=== PATIENT | male | born 1995 | race Caucasian/White ===

== ENCOUNTER 2017-05-19 22:21 | Emergency (ER) | payer OTHER ==
[~2017-05-19] VITALS: Ht 175.3 cm; Wt 63.5 kg
[~2017-05-19 22:21] MED LIST: AMOX50SU PO; AZIT200SU PO; CODACEE120 PO; CYPR4 PO; IBUP100S; SUMA25 PO; [UNRECOGNIZED DRUG - REMARK]
== END 2017-05-19 23:45 | disposition home or self-care (01) ==
LOC: ER 22:21
DX: S01.81XA Laceration without foreign body of other part of head, initial encounter (principal); S01.412A Laceration without foreign body of left cheek and temporomandibular area, initial encounter; S01.311A Laceration without foreign body of right ear, initial encounter; W20.8XXA Other cause of strike by thrown, projected or falling object, initial encounter
CPT/HCPCS: 12014; 99284

== ENCOUNTER 2017-05-24 13:11 | Emergency (ER) | payer OTHER ==
[~2017-05-24] VITALS: Ht 175.3 cm; Wt 64.9 kg
== END 2017-05-24 14:27 | disposition home or self-care (01) ==
LOC: ER 13:11
DX: S01.412D Laceration without foreign body of left cheek and temporomandibular area, subsequent encounter (principal); X58.XXXD Exposure to other specified factors, subsequent encounter
CPT/HCPCS: 99281

== ENCOUNTER 2018-09-09 08:24 | Inpatient (IN) | payer OTHER ==
[~2018-09-09] VITALS: Ht 175.3 cm; Wt 95.5 kg
[2018-09-09 09:59] LABS: BASOPHILS ABSOLUTE AUTO 0.03 K/mm3 (0.00-0.23); BASOPHILS PERCENT AUTO 0 % (0-2); EOSINOPHILS ABSOLUTE AUTO 0.16 K/mm3 (0.00-0.68); EOSINOPHILS PERCENT AUTO 1 % (0-6); Hematocrit 48.9 % (37.0-53.0); Hemoglobin 15.7 g/dL (13.5-17.5); IMMATURE GRAN PERCENT AUTO 1 % (0-1); LYMPHOCYTES ABSOLUTE AUTO 0.64 K/mm3 (0.84-5.20); LYMPHOCYTES PERCENT AUTO 3 % (21-46); MONOCYTES ABSOLUTE AUTO 1.81 K/mm3 (0.16-1.47); MONOCYTES PERCENT AUTO 8 % (4-13); Mean Corpuscular HGB 28.5 pg (26.0-34.0); Mean Corpuscular HGB Conc 32.1 g/dL (31.5-36.5); Mean Corpuscular Volume 89 fL (80-100); Mean Platelet Volume 11.3 fL (9.1-12.4); NEUTROPHILS ABSOLUTE AUTO 19.28 K/mm3 (1.96-9.15); NEUTROPHILS PERCENT AUTO 88 % (41-73); Platelet Count 252 K/mm3 (150-400); RDW Coefficient Variation 13.6 % (11.7-14.2); RDW Standard Deviation 44.6 fL (35.1-46.3); White Blood Cell Count 22.02 K/mm3 (4.00-11.30)
[2018-09-09 10:14] LABS: Alanine Aminotransfer (ALT/SGP 19 U/L (12-78); Albumin, Blood 3.8 g/dL (3.4-5.0); Albumin/Globulin Ratio 1.2 (0.8-1.8); Alk Phos 53 U/L (50-136); Anion Gap 8 mmol/L (6-16); Aspartate Aminotrans (AST/SGOT 10 U/L (12-37); Bilirubin, Total 0.7 mg/dL (0.1-1.0); Blood Urea Nitrogen 9 mg/dL (8-24); Bun/Creatinine Ratio 12.3 (12.0-20.0); CO2, Blood 21 mmol/L (21-32); Calcium, Blood 8.5 mg/dL (8.5-10.1); Chloride, Blood 109 mmol/L (98-108); Creatinine, Blood 0.73 mg/dL (0.60-1.20); Globulin, Blood 3.2 g/dL (2.2-4.0); Glomerular Filtration Rate >60 (60-); Glucose, Blood 111 mg/dL (70-99); Potassium, Blood 3.9 mmol/L (3.5-5.5); Sodium, Blood 138 mmol/L (136-145)
[2018-09-09 13:30] LABS: U Amphetamine Screen Not Detected; U Barbituate Screen Not Detected; U Benzodiazapine Screen Not Detected; U Buprenorphine Screen Not Detected; U Cannabinoids Screen Not Detected; U Cocaine Screen Not Detected; U Methadone Screen Not Detected; U Methamphetamine Screen Not Detected; U Opiates Screen Not Detected; U Oxycodone Screen Not Detected; U Phencyclidine Screen Not Detected; U Propoxyphene Screen Not Detected
[2018-09-09 13:52] LABS: Influenza A Negative (NEGATIVE); Influenza B Negative (NEGATIVE)
--- NOTE | 2018-09-09 18:01 | NUR ---
SHIFT SUMMARY PT IS A NEW ADMISSION THIS AFTERNOON FROM ED FOR PNEUMONIA. MEDICATED FOR PAIN IN CHEST WITH BREATHING PER EMAR. PT HAS LOW GRADE TEMP 100.4. TYLENOL ADMINISTERED EARLIER FOR PAIN. WILL MONITOR FOR EFFECTIVENESS FOR PAIN AND FEVER. IVF INFUSING WITHOUT DIFFICUTLY. PT ON 3 LITERS VIA NC WITH OXYGEN SATURATION 92-94%. NON PRODUCTIVE COUGH. NO ACUTE DISTRESS AT THIS TIME. CALL LIGHT IN REACH. WILL CONTINUE TO MONITOR AND REPORT TO ONCOMING RN.
--- NOTE | 2018-09-09 21:00 | NUR ---
PT C/O PLEURITIC CHEST PAIN W/DYSPNEA. PT OBSERVED DIAPHORETIC, SOB AT REST W/SHALLOW TACHYPNEIC RESPS AND GUARDED WEAK COUGH. RR 27, HR 109, SPO2 94% ON 3L O2 AND TEMP 100.5. HE ALSO BECAME NAUSEOUS AND PUKED A SCANT AMT BILE D/T COUGHING. LS COARSE AND RT CONSULTED. FLUTTER PROVIDED AND SPLINTING EXPLAINED. RN INSTRUCTED PT TO USE URINAL FOR ACCURATED OUTPUT MONITORING. ALERTED W/NEW ORDERS RECIEVED: DECREASE NS TO 75ML/HR, X1 DOSE DILAUDID 2MG IV, TRAMADOL 50MG PO Q6H PRN, ZOFRAN 4-8MG IV Q6H PRN. THESE MEDS WERE RECIEVED AND TESSALON PRN PROVIDED WELL. PT WAS ALREADY LESS PAINFUL AND SLEEPING WHEN RN LEFT ROOM. WILL MONITOR FOR CONT'D EFFECT.
--- NOTE | 2018-09-10 02:20 | NUR ---
PT C/O PLEURITIC CP UNRELIEVED BY TRAMADOL AND TYLENOL PRN W/DIFFICULTY SLEEPING. SOB W/ACTIVITY PERSISTS AND SEEMS TO EXACERBATE PAIN. MADE AWARE AND WE DISCUSSED PREVIOUS MEDS RX'D TONIGHT AND RECIEVED. TORADOL PRN AND MELATONIN AT HS PRN ORDERED, 1ST DOSES RECIEVED AND AWAITING EFFECTS.
--- NOTE | 2018-09-10 05:13 | NUR ---
SUMMARY: A/OX4, SPECIFIES NEEDS AND INDEPENDENT IN ROOM. PT HAS BEEN SOB FOLLOWING ACTIVITY AND REMAINS SO AT TIMES EVEN AT REST. SPO2 WNL ON 3L O2 DESPITE TACHYPNEA W/RR 20'S MOST OF SHIFT. HE C/O PLEURITIC STABBING PAIN WHICH SEEMS TO EXACERBATE RESP DISTRESS. WHEN PAIN IS AT IT'S WORST PT APPEARS DIAPHORETIC AND TACHYCARDIC W/LABORED RESPS. HE HAD AN EPISODE OF NAUSEA W/SCANT EMESIS RESULT. AND HAVE BEEN ALERTED T/O NOCTE W/NEW ORDERS RECIEVED. X1 IV DILAUDID WAS RX'D AND PROVIDED, PT SLEPT WELL BUT EFFECT WAS BRIEF. HE'S ALSO BEEN RX'D AND RECIEVED PRN ZOFRAN, TRAMADOL, TESSALON PERLS, TYLENOL, TORADOL AND MELATONIN FOR SLEEP. PLEURITIC PAIN SEEMS BETTER THIS AM BUT HE CONT'S TO C/O JULIEN. PT TAKEN FOR CXR THIS AM. RT CX'D AND PROVIDED FLUTTER SINCE LS WERE COARSE W/SCATTERED CRACKLES AT START OF SHIFT. BX AND SPLINTING TECHNIQUES TAUGHT. IVF WERE DECREASED TO 75 ML/HR FOR FLUID OVERLOAD PRECAUTION. PT REMAINS NSR AT 90'S-100'S PER TELEMETRY. NO ACUTE CHANGES, VSS/AFEBRILE. WILL MONITOR AND REPORT TO DAY RN.
[2018-09-10 06:28] LABS: BASOPHILS ABSOLUTE AUTO 0.04 K/mm3 (0.00-0.23); BASOPHILS PERCENT AUTO 0 % (0-2); EOSINOPHILS ABSOLUTE AUTO 0.25 K/mm3 (0.00-0.68); EOSINOPHILS PERCENT AUTO 1 % (0-6); Hematocrit 51.7 % (37.0-53.0); Hemoglobin 16.4 g/dL (13.5-17.5); IMMATURE GRAN ABSOLUTE AUTO 0.31 K/mm3 (0.00-0.10); IMMATURE GRAN PERCENT AUTO 1 % (0-1); LYMPHOCYTES ABSOLUTE AUTO 0.94 K/mm3 (0.84-5.20); LYMPHOCYTES PERCENT AUTO 4 % (21-46); MONOCYTES ABSOLUTE AUTO 1.58 K/mm3 (0.16-1.47); MONOCYTES PERCENT AUTO 6 % (4-13); Mean Corpuscular HGB 28.6 pg (26.0-34.0); Mean Corpuscular HGB Conc 31.7 g/dL (31.5-36.5); Mean Corpuscular Volume 90 fL (80-100); Mean Platelet Volume 11.6 fL (9.1-12.4); NEUTROPHILS ABSOLUTE AUTO 24.12 K/mm3 (1.96-9.15); NEUTROPHILS PERCENT AUTO 89 % (41-73); Platelet Count 257 K/mm3 (150-400); RDW Coefficient Variation 13.9 % (11.7-14.2); RDW Standard Deviation 46.4 fL (35.1-46.3); Red Blood Cell Count 5.74 M/mm3 (4.30-5.90); White Blood Cell Count 27.24 K/mm3 (4.00-11.30)
[2018-09-10 06:44] LABS: Anion Gap 6 mmol/L (6-16); Blood Urea Nitrogen 6 mg/dL (8-24); Bun/Creatinine Ratio 7.8 (12.0-20.0); CO2, Blood 24 mmol/L (21-32); Calcium, Blood 8.3 mg/dL (8.5-10.1); Chloride, Blood 106 mmol/L (98-108); Creatinine, Blood 0.77 mg/dL (0.60-1.20); Glomerular Filtration Rate >60 (60-); Glucose, Blood 130 mg/dL (70-99); Potassium, Blood 4.2 mmol/L (3.5-5.5); Sodium, Blood 136 mmol/L (136-145)
--- NOTE | 2018-09-10 15:28 | NUR ---
Echocardiogram completed.
--- NOTE | 2018-09-10 17:32 | NUR ---
SHIFT SUMMARY PT HAS HAD COMPLAINTS OF CHEST/PLEURITIC PAIN THROUGH OUT THE SHIFT. MEDICATED FOR PAIN PER EMAR. PT SHALLOW BREATHNG AND HAS OCCASIONAL COUGH. OXYGEN INCREASED TO 6L FROM 3L THIS AFTERNOON DUE TO PT'S OXYGEN SATURATION IN 80'S. PT'S OXYGEN SATURATION HAS BEEN 92-94% ON 6L. DR. SHELDON IN TO SEE PT. NEW ANTIBIOTIC ORDERED. SPUTUM SAMPLE SENT PER ORDERS. NO FURTHER CHANGES THIS SHIFT. CALL LIGHT IN REACH. WILL CONTINUE TO MONITOR AND REPORT TO ONCOMING RN.
--- NOTE | 2018-09-11 04:35 | NUR ---
*LATE ENTRY* FREQUENT PAIN/SOB W/BREATHING PT HAS FREQUENTLY REPORTED 9/10 SHARP PAIN EITHER W/HEADACHE, BACK, OR W/BREATHING. WHEN PT REPORTS THIS DISCOMFORT HIS BREATHING IS VERY TACHYPNEIC & HE IS SOB. NOTIFIED HOSPITALIST MENG & HE CAME TO FLOOR TO ASSESS PT AROUND 0330. DR FAN ORDERED A 1X DOSE OF TORADOL & CHANGED DOSAGE OF ULTRAM, ALSO REPORTED HE WOULD TALK TO DR. CORDERO IN AM. EVEN AFTER ADMINISTERING TORADOL PT IS STILL SITTING ON SIDE OF BED RESTING OVER BEDSIDE TABLE STATING HE FEELS SOB. EARLIER THIS EVENING RT INCREASED SUPPLEMENTAL O2 TO 11L DUE TO SPO2 IN 80'S ON 5L, I HAVE SINCE DECREASED O2 DOWN TO 9L & SPO2 IS IN LOW 90'S. I WILL CONTINUE TO MONITOR PT.
[2018-09-11 05:05] LABS: PCO2 Arterial 38.8 mmHg (35-45); PO2 Arterial 63.6 mmHg (80-100); pH Blood Arterial 7.38 (7.35-7.45)
[2018-09-11 06:56] LABS: BASOPHILS ABSOLUTE AUTO 0.03 K/mm3 (0.00-0.23); BASOPHILS PERCENT AUTO 0 % (0-2); EOSINOPHILS ABSOLUTE AUTO 0.39 K/mm3 (0.00-0.68); EOSINOPHILS PERCENT AUTO 2 % (0-6); Hemoglobin 14.5 g/dL (13.5-17.5); IMMATURE GRAN ABSOLUTE AUTO 0.12 K/mm3 (0.00-0.10); IMMATURE GRAN PERCENT AUTO 1 % (0-1); LYMPHOCYTES ABSOLUTE AUTO 0.65 K/mm3 (0.84-5.20); LYMPHOCYTES PERCENT AUTO 4 % (21-46); MONOCYTES ABSOLUTE AUTO 1.39 K/mm3 (0.16-1.47); MONOCYTES PERCENT AUTO 7 % (4-13); Mean Corpuscular HGB 28.5 pg (26.0-34.0); Mean Corpuscular HGB Conc 30.9 g/dL (31.5-36.5); Mean Platelet Volume 11.6 fL (9.1-12.4); NEUTROPHILS ABSOLUTE AUTO 16.22 K/mm3 (1.96-9.15); NEUTROPHILS PERCENT AUTO 86 % (41-73); Platelet Count 213 K/mm3 (150-400); RDW Coefficient Variation 13.8 % (11.7-14.2); RDW Standard Deviation 47.2 fL (35.1-46.3); Red Blood Cell Count 5.08 M/mm3 (4.30-5.90)
[2018-09-11 07:07] LABS: Mean Corpuscular Volume 93 fL (80-100)
[2018-09-11 07:08] LABS: Anion Gap 8 mmol/L (6-16); Blood Urea Nitrogen 6 mg/dL (8-24); Bun/Creatinine Ratio 9.3 (12.0-20.0); CO2, Blood 22 mmol/L (21-32); Calcium, Blood 7.9 mg/dL (8.5-10.1); Chloride, Blood 108 mmol/L (98-108); Creatinine, Blood 0.65 mg/dL (0.60-1.20); Glomerular Filtration Rate >60 (60-); Glucose, Blood 105 mg/dL (70-99); Potassium, Blood 4.1 mmol/L (3.5-5.5); Sodium, Blood 138 mmol/L (136-145)
--- NOTE | 2018-09-11 07:31 | NUR ---
SHIFT SUMMARY PT HAS BEEN AWAKE MOST OF NIGHT DUE TO PAIN & SOB. AOX4. DENIES NAUSEA. REPORTS 7-01/28 SHARP PAIN IN BACK, HEADACHE & W/BREATHING. WHEN PAIN INCREASES PT IS TACHYPNEIC W/RR 28-32. AT BEGINNING OF SHIFT PT ON 5L HIGH FLOW NC, RT ASSESSED PT & SPO2 IN 80'S THEREFORE O2 INCREASED TO 11L W/SPO2 IN 90'S. TITRATED O2 DOWN TO 9L W/SPO2 IN LOW 90'S, HOWEVER PT STILL SITTING ON SIDE OF BED, TACHYPNEIC & REPORTING DIFFICULTY BREATHING. CALLED RT & THEY PLACED PT ON AIRVO 35L/MIN @ 45% O2 AFTER TALKING W/DR FAN. LUNGS ARE COURSE W/CRACKLES T/O LOBES. PT HAS BEEN COUGHING UP YELLOW/GREEN THICK MUCUS CHUNKS & TENDS TO THROW UP WHEN HE COUGHS UP MUCUS BUT DENIES NAUSEA. PT STATES "WHEN I LAY ON MY LEFT SIDE IT IS HARDER TO BREATH," & FEELS MORE COMFORTABLE W/SITTING. AROUND 0625 DR FAN CAME TO FLOOR & STATED HE WOULD LIKE PT TRANSFERED TO PCU. CALLED REPORT AROUND 0745 & GAVE REPORT TO RN FOR ICU 1, SINCE NO BEDS AVAILABLE IN PCU. HAS BEEN @ BEDSIDE T/O NIGHT.
--- NOTE | 2018-09-11 09:34 | NUR ---
ARRIVAL TO ICU AND CARE ASSUME PT BROUGHT TO ICU FROM MEDICAL FLOOR AT 0730. PT ARRIVES WITH OZYMIZER 5L AND SPO2 94% AND IS TACHYPNIC. C/O SEVERE PAIN TO CHEST AND IS TALKING IN CHOPPY SENTENCES. OZYMIZER REMOVED AND AIRVO APPLIED AT 50L, 65%. LUNG SOUNDS COARSE WITH CRACKLES IN BASES. BEDSIDE. DILAUDID 1 MG IVP GIVEN FOR CHEST PAIN. SINUSTACH, HR 100-120S. BP STABLE. TEMP 99.0. MIV NS IFUSING AT 75ML/HR PER ORDER. PT A/O X 3, AND IS ANXIOUS. ENCOURAGED PT TO SLOW BREATHING AND REDUCE EXERTION. MD SHELDON CALLED AND NOTIFIED THAT PT HAS BEEN TRANSFERRED TO ICU AND O2 DEMANDS HAVE INCREASED ON AIRVO. 2ND IV STARTED AND PT MOVED ONTO MORE COMFORTABLE BED. ABLE TO STAND AND TRANSFER WITH NO ASSIST. CALL LIGHT WITHIN REACH. WILL CONTINUE TO MONITOR.
--- NOTE | 2018-09-11 12:34 | NUR ---
REASSESSMENT PT MUCH MORE RELAXED THAN WHEN FIRST ARRIVED. STATES PAIN HAS IMPROVED SINCE REIEVING TRAMADOL. LUNG SOUNDS REMAIN COARSE AND CRACKLY. AIRVO 50L, 65%. VSS. AFEBRILE AT THIS TIME. BP STABLE. NSR, HR 80-110. INDEPENDENT WITH USING URINAL AND MOVING AROUND IN BED. DOES GET SHORT OF BREATH WITH ANY EXERTION. NS MIV INFUSING AT 75ML/HR PER ORDER. WILL CONTINUE TO MONITOR.
[2018-09-11 15:50] LABS: Vancomycin, Trough 10.2 ug/mL (5.0-10.0)
--- NOTE | 2018-09-11 16:30 | NUR ---
REASSESSMENT PT RECEIVED BEDBATH AND LINEN CHANGE. HE IS ABLE TO STAND AND AMBULATE AROUND ROOM WITH NO ASSIST BUT BECOMES SHORT OF BREATH WITH ANY EXERTION. CONTINUES TO WEAR AIRVO 50L, 65% OXYGEN. LUNG SOUNDS REMAIN COARSE WITH CRACKLES. PT SLEEPING AT THIS TIME. TEMP 99.0. REMAINS A/O X 3. VSS. WILL CONTINUE TO MONITOR.
--- NOTE | 2018-09-11 17:00 | NUR ---
This student was given permission to access patient's information.
--- NOTE | 2018-09-11 18:13 | NUR ---
SHIFT SUMMARY PT ARRIVED FROM MEDICAL FLOOR EARLY THIS AM. HE HAS REMAINED ON AIRVO 50L, 65% MOST OF SHIFT. SLEPT FEW HOURS THIS AFTERNOON. FAMILY IN/OUT ROOM ENTIRE SHIFT. RECEIVED MANY ANTIBIOTICS DURING SHIFT. NS MIV INFUSING AT 75 ML/HR PER ORDER. RECIEVED BEDBATH AND LINEN CHANGE, HAD BM AND HAS BEEN UP AND OUT OF BED MULTIPLE TIMES DURING SHIFT. TMAX 99.0. WILL GIVE BEDSIDE, HANDOFF REPORT TO NOC RN.
--- NOTE | 2018-09-11 19:30 | NUR ---
ASSESSMENT PT SITTING UP IN BED WITH SO AT BEDSIDE. PT STATES,"I'M BREATHING A LITTLE BETTER THAN WHEN I CAME IN. STARTING TO HAVE CHEST AND BACK PAIN AGAIN 07/28". MED WITH ULTRAM 100 MG. PT MOVING AND TURNING SELF IN BED. STANDS AT BEDSIDE TO VOID. VOIDING CLEAR YELLOW URINE. LUNGS COARSE AND DECREASED THROUGHOUT. AIRVO AT 65% 50 LITERS O2. INSTRUCTED AND ENCOURAGED TO USE FLUTTER VALVE. HEART RATE REGULAR. BP STABLE. IV 20G TO LEFT HAND WITH NS AT 75 ML/HR, SITE CLEAR. IV 20G TO LEFT FOREARM WITH ZOSYN AT, SITE CLEAR. BT+ ABD SOFT AND NONTENDER. RT AT BEDSIDE GIVING UDN TX
--- NOTE | 2018-09-11 20:14 | NUR ---
RESP STATUS PT STOOD AT BEDSIDE TO VOID. INCREASED RESP RATE AND DECREASED SPO2 NOTED. PT DROPPED DOWN TO 85% ON THE AIRVO. RT CALLED AND INCREASED AIRVO TO 60 LITERS O2 AT 75%. PT BACK TO BED INSTRUCTED TO BREATH IN THROUGH NOSE AND OUT THROUGH MOUTH WITH TRYING TO DECREASED RESP RATE. SPO2 BACK UP TO 93%. PT MED WITH MELATONIN FOR SLEEP PER REQUESTE. PT REPORTS PAIN DOWN TO 1/10.
--- NOTE | 2018-09-11 21:14 | NUR ---
CALL OUT TO DR SHELDON REGARDING INCREASED O2 NEED. AIRVO INCREASED TO 60 LITERS AT 90%. NEW ORDERS RECEIVED FOR BIPAP 03/03 AND PRECEDEX GTT IF NEEDED TO TOLERATE BIPAP
--- NOTE | 2018-09-11 21:50 | NUR ---
BIPAP PT BEING PLACED ON BIPAP 03/03. NEW IV STARTED TO LEFT AC 20G FOR POSSIBLE USE OF PRECEDEX TO TOLERATE BIPAP.
--- NOTE | 2018-09-12 00:32 | NUR ---
PT RESTING WITH EYES CLOSED, SPO2 DOWN TO 88% INCREASED FIO2 TO 90%. RESP RATE 43 WITH TV AT 500. WILL CONT TO MONITOR.
--- NOTE | 2018-09-12 01:30 | NUR ---
INTUBATION PT CONT TO HAVE INCREASED WORK OF BREATHING WITH RESP RATE 50-60. SPO2 DOWN TO 88-90% ON BIPAP AT FIO2 OF 90%. DR RIVERA FROM ER INTUBATED PT AT 0100. ET TUBE 8.0 AT 26 TEETH. PT SEDATED WITH ETOMIDATE 10 MG, ROCURONIUM 100MG AND VERSED 4 MG. OG TUBE PLACED AND LI CATH 16 FR PLACED WITH YELLOW URINE OUTPUT. DR SHELDON NOTIFIED AND VENT SETTINGS CHANGED TO AC 18 TV 450 PEEP 10 FIO2 100%. CXR DONE AND DR RIVERA CONFIRMED TUBE PLACEMENT, BUT WAS PUTTING A CALL TO DR SHELDON DUE TO THE PT MAY NEED [facility]
[2018-09-12 01:42] LABS: PCO2 Arterial 45.4 mmHg (35-45); PO2 Arterial 56.6 mmHg (80-100); pH Blood Arterial 7.34 (7.35-7.45)
--- NOTE | 2018-09-12 02:00 | NUR ---
LR BOLUS FOR HYPOTENSION STARTED. MOTHER AND SO AT BEDSIDE
--- NOTE | 2018-09-12 02:45 | NUR ---
PAIN PT PULLING ON RESTRAINT AND HITTING PILLOW. PROPOFOL AT 25 MCQ/KG/MIN. MED WITH FENTANYL 50 MCQ
[2018-09-12 03:27] LABS: Hematocrit 38.7 % (37.0-53.0); Hemoglobin 12.5 g/dL (13.5-17.5); Mean Corpuscular HGB 28.5 pg (26.0-34.0); Mean Corpuscular HGB Conc 32.3 g/dL (31.5-36.5); Mean Platelet Volume 11.2 fL (9.1-12.4); Platelet Count 254 K/mm3 (150-400); RDW Coefficient Variation 13.6 % (11.7-14.2); RDW Standard Deviation 44.2 fL (35.1-46.3); Red Blood Cell Count 4.39 M/mm3 (4.30-5.90); White Blood Cell Count 17.39 K/mm3 (4.00-11.30)
[2018-09-12 03:30] LABS: Mean Corpuscular Volume 88 fL (80-100)
[2018-09-12 03:42] LABS: Source, Urine Catheter
[2018-09-12 03:46] LABS: Bilirubin, Urine Neg (Neg); Blood, Urine Neg (Neg); Glucose Qualitative, Urine Neg (Neg); Ketones, Urine Neg (Neg); Leukocyte Esterase, Urine Neg (Neg); Nitrite, Urine Neg (Neg); Protein, Urine 2+ (Neg); Specific Gravity, Urine 1.025 (1.003-1.022); Urobilinogen, Urine NORM (Normal)
[2018-09-12 03:50] LABS: Alanine Aminotransfer (ALT/SGP 15 U/L (12-78); Albumin, Blood 2.5 g/dL (3.4-5.0); Albumin/Globulin Ratio 0.8 (0.8-1.8); Alk Phos 34 U/L (50-136); Anion Gap 6 mmol/L (6-16); Aspartate Aminotrans (AST/SGOT 10 U/L (12-37); Bilirubin, Total 0.2 mg/dL (0.1-1.0); Blood Urea Nitrogen 9 mg/dL (8-24); Bun/Creatinine Ratio 14.5 (12.0-20.0); CO2, Blood 25 mmol/L (21-32); Calcium, Blood 7.9 mg/dL (8.5-10.1); Chloride, Blood 108 mmol/L (98-108); Creatinine, Blood 0.62 mg/dL (0.60-1.20); Globulin, Blood 3.2 g/dL (2.2-4.0); Glomerular Filtration Rate >60 (60-); Glucose, Blood 160 mg/dL (70-99); Magnesium, Blood 2.3 mg/dL (1.6-2.4); Phosphorus, Blood 2.7 mg/dL (2.5-4.9); Potassium, Blood 4.1 mmol/L (3.5-5.5); Sodium, Blood 139 mmol/L (136-145); Total Protein, Blood 5.7 g/dL (6.4-8.2)
[2018-09-12 04:05] LABS: Appearance, Urine Clear (Clear); Bacteria Rare /hpf; Color, Urine Yellow (P-Yellow); Red Blood Cells, Urine Not Seen /hpf (0-2); Squamous Epithelial Cells Few /hpf (Few); White Blood Cells, Urine Rare /hpf (0-5)
[2018-09-12 04:17] LABS: BAND PERCENT MAN 3 % (0-8); BASOPHILS PERCENT MAN 0 % (0-2); EOSINOPHILS PERCENT MAN 0 % (0-6); LYMPHOCYTES ABSOLUTE MAN 1.04 K/mm3 (0.84-5.20); LYMPHOCYTES PERCENT MAN 6 % (21-46); MONOCYTES ABSOLUTE MAN 0.52 K/mm3 (0.16-1.47); MONOCYTES PERCENT MAN 3 % (4-13); NEUTROPHILS ABSOLUTE MAN 15.82 K/mm3 (1.96-9.15); SEG NEUTROPHILS PERCENT MAN 88 % (41-73); TOTAL CELLS COUNTED 100
--- NOTE | 2018-09-12 04:19 | NUR ---
REASSESSMENT PT INTUBATED AND ON MECH VENT. LUNGS COARSE AND DECREASED IN THE BASES. REPOSITIONED PT AND SPO2 DOWN TO 79% ON THE LEFT. REPOSITIONED TO BACK WITH HOB UP AND SPO2 INCREASED TO 85-86%. RT NOTIFIED AND THEY INCREASED PEEP TO 15. SPO2 UP TO 90-92%. PT MED WITH FENTANYL 50 MCQ DUE TO REACHING FOR TUBE. UA SENT. ORAL CARE DONE. MOTHER AND SO AT BEDSIDE
--- NOTE | 2018-09-12 05:51 | NUR ---
SHIFT SUMMARY PT INTUBATED DURING THE NIGHT DUE TO INCREASED RESP RATE AND DECREASED SPO2. PT STARTED ON AIRVO WHICH WAS TITRATED TO MAX 90% AND 70 LITERS O2. PT THAN PLACED ON BIPAP AND TITRATE UP TRYING TO KEEP SPO2 ABOVE 90%. PT CONT TO BREATH AT A RATE ON 50-60 AND SPO2 DOWN TO 88%. PT WAS INTUBATED BY DR RIVERA 8.0 ET TUBE 26 AT LIP. CURRENT VENT SETTINGS AC 18 TV 450 PEEP 15 FIO2 80%. LUNGS COARSE AND DECREASED IN THE BASES. HEART RATE REGULAR. BP STABLE. PT RECEIVED ONE LITER BOLUS OF LR AND THAN WAS CHANGED TO LR AT 100 ML/HR. PT SEDATED ON PROPOFOL AT 25 MCQ/KG/MIN AND GIVEN FENTANYL 50MCQ PRN FOR SEDATION. LI CATH AND OG PLACED AFTER INTUBATION. MOTHER AND SO AT BEDSIDE. PT POSSIBLE TRANSFER UP [facility] TODAY FOR [facility]. BILAT SOFT WRIST RESTRAINTS ON. REPORT TO ON COMING NURSE
--- NOTE | 2018-09-12 11:23 | NUR ---
09/12/18 1123 Adriana Osborn PT INTIBATED AND SEDATED ON VENT. ADDITIONAL SEDATION GIVEN WITH FENTANYLM AFTER DISCUSSING PLAN WITH DR. PADGETT. MONITOR INTACT WITH CONTINUOUS PULSE OXIMETRY AND INTERMITTENT BP.3-LEAD EKG REVIEWED WITH PHYSICIAN PRIOR TO START OF PROCEDURE.
--- NOTE | 2018-09-12 12:51 | NUR ---
REASSESSMENT: PT WAS HAVING A LOT OF DISCOMFORT THIS MORNING RELATED TO THE ET TUBE. FENTANYL HELPED A LITTLE, BUT THE DILAUDID FINALLY MADE HIM COMFORTABLE. PROPPOFOL HAD TO BE TITRATED UP WELL TO GET PT TO SETTLE DOWN. PT'S LUNGS WERE COARSE THIS MORNING, BUT ARE MORE CLEAR NOW. HE HAD A BRONCH AT THE BEDSIDE AND TOLERATED IT WELL. OXYGEN RATES HAVE BEEN ABLE TO BE TITRATED DOWN BUT PEEP IS STILL AT 15. SR TO ST DEPENDING ON PT'S AGITATION LEVEL. ABD IS A LITTLE FIRM AND DISTENDED. AT FIRST THIS MORNING IT APPEARED PT WAS SAYING HIS BELLY OR BLADDER HURT, BUT AFTER HE WAS ABLE TO WRITE HE WROTE THAT IT WAS HIS THROAT. TUBE FEED TO START THIS AFTERNOON. PT'S SO AND MOM HAVE BEEN IN AND OUT OF THE ROOM. BOTH HAVE BEEN FULLY UPDATED BY MD AND NURSING STAFF.
[2018-09-12 15:17] LABS: Other Cells, BAL 8 % (0-1)
[2018-09-12 15:28] LABS: Vancomycin, Trough 14.2 ug/mL (5.0-10.0)
[2018-09-12 16:02] LABS: Other Cells, BAL 15 % (0-1)
--- NOTE | 2018-09-12 17:15 | NUR ---
SHIFT SUMMARY: PT HAS IMPROVED THROUGHOUT THE SHIFT WITH PEEP DOWN TO 10 AND FIO2 DOWN TO 45% WITH SPO2 GREATER THAN 90%. LUNG SOUNDS HAVE IMPROVED AND ARE NOW CLEAR. STILL GETTING A SMALL AMT OF TUTTLE SPUTUM FROM THE ETT. HR IMPROVED WITH RATE IN THE 80S, BP REMAINS STABLE. PT STILL HAS OCCASIONAL ANXIETY AND COMPLAINTS OF PAIN, CONTROLLED WITH FENTANYL AND DILAUDID. PT HAD A BRONCH TODAY AND HAS DONE WELL SINCE. TUBE FEED STARTED THIS AFTERNOON AND HE IS TOLERATING SO FAR. LI DRAINING CL YELLOW URINE. PT'S FAMILY HAS BEEN IN AND OUT THROUGHOUT THE DAY AND HAVE BEEN UPDATED.
--- NOTE | 2018-09-12 19:15 | NUR ---
ASSUMING CARE OF PT AT THIS TIME. PT REPORT RECEIVED AT BEDSIDE WITH OFFGOING NURSE, BRITTNI VELAZCO. PT LAYING IN BED, INTUBATED, AND SEDATED UPON ENTERING THE ROOM. VS STABLE - SEE VS FS. PT DOES NOT APPEAR TO BE IN DISTRESS AT THIS TIME. WILL REVIEW PLAN OF CARE.
--- NOTE | 2018-09-12 19:30 | NUR ---
ASSESSMENT PT CALM & SLEEPING IN BED WITH DECREASED STIMULI. INCREASED AGITATION, ANXIETY, RESTLESSNESS, AND PULLING AT BILAT WRIST RESTRIANTS WITH DECREASED SEDATION AND INCREASED STIMULI. PT RESPONDS TO VERBAL STIMULI, OPENS EYES TO VERBAL STIMULI, FOLLOWS COMMANDS (ABLE TO WIGGLE TOES AND RETAIL SALES MERCHANDISER ON COMMAND), NODDING HEAD Y/N TO MOST QUESTIONS). PROPOFOL DRIP AT 50 MCG/KG/MIN - WILL TITRATE TO EFFECT. HUANG SENSATION. PT NOT NODDING HEAD Y/N TO N/T OR SENSATION INTACT IN EXTREMETIES. PT SON. WEAK MOVEMENT NOTED. NO S/SX OF PAIN/DISCOMFORT NOTED. PT DENIES PAIN/DISCOMFORT. LUNGS COARSE, LOWER LOBES DIMINISHED. VENT SETTINGS: AC 18, TV 450, PEEP 10, FIO2 45%. OXY SAT >90%. RR 20'S. PER REPORT FROM MORA ELKINS: DO NOT DECREASE PEEP <10. SUCTION VIA ETT: SMALL AMOUNTS OF THICK TUTTLE SECRETIONS. AFEBRILE. NSR. HR 90'S. BP STABLE - SEE VS FS. STRONG RADIAL AND PEDAL PULSES. FAINT TIBIAL PULSES. WARM, PINK SKIN. HYPOACTIVE BT X4 QUADRANTS. ABD SOFT, NONTENDER, MOD DIST. OG TUBE IN PLACE. TF: VHP AT GOAL RATE 15 ML/HR AND 30 ML FLUSH Q4 HR. RESIDUAL 0. F/C: CLEAR, YELLOW URINE. PIV X3. NS TKO AT 10 ML/HR X2. LR TKO AT 10 ML/HR. PT'S FAMILY AT BEDSIDE.
[2018-09-13 03:27] LABS: BASOPHILS ABSOLUTE AUTO 0.03 K/mm3 (0.00-0.23); BASOPHILS PERCENT AUTO 0 % (0-2); EOSINOPHILS ABSOLUTE AUTO 0.34 K/mm3 (0.00-0.68); EOSINOPHILS PERCENT AUTO 2 % (0-6); Hematocrit 34.7 % (37.0-53.0); Hemoglobin 11.4 g/dL (13.5-17.5); IMMATURE GRAN PERCENT AUTO 1 % (0-1); LYMPHOCYTES ABSOLUTE AUTO 0.94 K/mm3 (0.84-5.20); LYMPHOCYTES PERCENT AUTO 6 % (21-46); MONOCYTES ABSOLUTE AUTO 0.99 K/mm3 (0.16-1.47); MONOCYTES PERCENT AUTO 6 % (4-13); Mean Corpuscular HGB 28.8 pg (26.0-34.0); Mean Corpuscular HGB Conc 32.9 g/dL (31.5-36.5); Mean Corpuscular Volume 88 fL (80-100); Mean Platelet Volume 11.1 fL (9.1-12.4); NEUTROPHILS ABSOLUTE AUTO 14.31 K/mm3 (1.96-9.15); NEUTROPHILS PERCENT AUTO 86 % (41-73); Platelet Count 289 K/mm3 (150-400); RDW Coefficient Variation 14.1 % (11.7-14.2); RDW Standard Deviation 45.5 fL (35.1-46.3); Red Blood Cell Count 3.96 M/mm3 (4.30-5.90); White Blood Cell Count 16.71 K/mm3 (4.00-11.30)
[2018-09-13 03:43] LABS: Anion Gap 9 mmol/L (6-16); Blood Urea Nitrogen 16 mg/dL (8-24); Bun/Creatinine Ratio 20.4 (12.0-20.0); CO2, Blood 23 mmol/L (21-32); Calcium, Blood 8.1 mg/dL (8.5-10.1); Chloride, Blood 107 mmol/L (98-108); Creatinine, Blood 0.79 mg/dL (0.60-1.20); Glomerular Filtration Rate >60 (60-); Glucose, Blood 170 mg/dL (70-99); Magnesium, Blood 2.6 mg/dL (1.6-2.4); Phosphorus, Blood 2.9 mg/dL (2.5-4.9); Potassium, Blood 3.6 mmol/L (3.5-5.5); Sodium, Blood 139 mmol/L (136-145)
[2018-09-13 04:33] LABS: PCO2 Arterial 36.2 mmHg (35-45); PO2 Arterial 70.7 mmHg (80-100); pH Blood Arterial 7.41 (7.35-7.45)
--- NOTE | 2018-09-13 04:48 | NUR ---
SHIFT ASSESSMENT NO ACUTE CHANGES NOTED T/O SHIFT. PT CALM & SLEEPING IN BED WITH DECREASED STIMULI. INCREASED AGITATION, ANXIETY, RESTLESSNESS, AND PULLING AT BILAT WRIST RESTRAINTS WITH DECREASED SEDATION AND INCREASED STIMULI. PT RESPONDS TO VERBAL STIMULI, OPENS EYES TO VERBAL STIMULI, OPENED EYES SPONT DURING SEDATION VACATION, FOLLOWS COMMANDS (ABLE TO WIGGLE TOES AND MARINE MECHANIC ON COMMAND), NODDING HEAD Y/N TO MOST QUESTIONS. PROPOFOL CURRENTLY AT 60 MCG/KG/MIN - CONT TO TITRATE TO EFFECT. SEDATION VACATION COMPLETED. PT NODDED HEAD YES TO SENSATION INTACT ALL EXTREMETIES. PT NODDED HEAD NO TO N/T ALL EXTREMEITES. PT SON. WEAK MOVEMEN NOTED. OCC S/SX OF PAIN/DISCOMFORT NOTED T/O SHIFT. PT OCC NODDED HEAD YES TO PAIN/DISCOMFORT T/O SHIFT. CONT TO ASSESS FOR PAIN/DISCOMFORT AND MEDICATED WITH PAIN MEDS PER PHYSICIAN'S ORDER / UTILIZED NONPHARM METHODS T/O SHIFT. LUNGS COARSE, LOWER LOBES DIMINISHED. VENT SETGINS: AC 18, TV 450, PEEP 10, FIO2 45%. OXY SAT >90%. RR 18 TO 20'S. SUCTION VIA ETT: SMALL AMOUNTS OF THICK TUTTLE SECRETIONS. PER ALBA, RT: SBT NOT COMPLETED D/T PEEP 10. AFEBRILE. NSR TO ST. HR 80'S TO 100'S. BP STABLE - SEE VS FS. STRONG RADIAL AND PEDAL PULSES. FAINT TIBIAL PULSES. WARM, PINK SKIN. HYPOACTIVE BT X4 QUADRANTS. ABD SOFT, NONTENDER, MOD DIST. OG TUBE IN PLACE. TF: VHP AT GOAL RATE 15 ML/HR AND 30 ML FLUSH Q4 HR. RESIDUAL 0. F/C: GREEN/YELLOW URINE. PIV X3. NS TKO X2 ON STANDBY. LR TKO ON STANDBY. PT'S FAMILY REMAINED AT BEDSIDE. WILL CONT TO MONITOR PT AND WILL PROVIDE BEDSIDE REPORT TO ONCOMING NURSE THIS AM.
[2018-09-13 07:11] LABS: HIV SCREEN 4TH GENERATION WRFX Non Reactive (Non Reactive)
[2018-09-13 08:10] LABS: COMPLEMENT C3, SERUM 134 mg/dL (82-167); COMPLEMENT C4, SERUM 22 mg/dL (14-44)
--- NOTE | 2018-09-13 08:45 | NUR ---
INITIAL ASSESSMENT PATIENT IS INTUBATED AND ON SEDATION WITH SIGNIFICANT OTHER AT THE BEDSIDE. PATIENT RESPONDS TO VERBAL STIMULI AND FOLLOWS COMMANDS. PATIENT IS ABLE TO NOD HEAD TO QUESTIONS. PATIENT HAD PERIODS OF AGITATION THIS AM AND NODDED HEAD WHEN ASKED IF HE WAS HAVING PAIN. PATIENT WAS MEDICATED WITH PRN DILAUDID AND PATIENT BECAME MORE CALM. PATIENT IS AFEBRILE. PATIENT IS SATTING 90% OR GREATER ON CURRENT VENT SETTINGS: AC 18, TV 450, PEEP 10, FIO2 45%. PATIENT LUNG SOUNDS WERE CLEAR AND DIMINISHED IN THE LOWER LOBES BUT WERE COARSE IN THE UPPER LOBES. PATIENT WAS SINUS TACH W HR IN THE LOW 100S. BP IS STABLE. PATIENT HAS OG IN PLACE WITH VHP INFUSING AT GOAL RATE OF 15 ML/HR. PATIENT HAD RESIDUAL OF 0. PATIENT HAS TEMP LI IN PLACE DRAINING CLEAR GREEN URINE TO GRAVITY. SKIN IS WNL. VANCO INFUSING WITH NS. ZOSYN INFUSING WITH NS. PROPOFOL INFUSING AT 60 MCG/KG/MIN. BED LOW. CALL LIGHT IN REACH. WILL CONTINUE TO MONITOR.
--- NOTE | 2018-09-13 10:07 | NUR ---
DR CABRALES CHANGES VENTILATOR SETTINGS TO SPONTANEOUS PRESSURE SUPPORT 5/5, FIO2 45%. PATIENT SATTING WELL AT 90% OR GREATER. WILL CONTINUE TO MONITOR.
--- NOTE | 2018-09-13 14:04 | NUR ---
PATIENT WAS EXTUBATED AT 1335. PATIENT CALM, COOPERATIVE, FOLLOWING DIRECTIONS. PATIENT SATTING 90% OR GREATER ON 6 L NC. IV IN R FOREARM INFILTRATED. TIGHT HAND AND FOREARM, HAND RED, FOREARM IS PALE IN COLOR. DR CABRALES INFORMED AND ASSESSED SITE. INSTRUCTED TO ELEVATED AND WARM COMPRESS WAS PLACED. WILL CONTINUE TO MONITOR.
--- NOTE | 2018-09-13 14:52 | NUR ---
PATIENT DRINKING WATER THAT FAMILY GAVE HIM, UPON NURSE WALKING INTO ROOM. PATIENT APPPEARS TO BE SWALLOWING WELL. PATIENT INFORMED THAT HE NEEDS TO USE SWAB WITH WATER UNTIL SWALLOW EVAL IN MORNING AND THEN HE WILL BE PLACED ON A PROPER DIET. PATIENT AGREEABLE.
--- NOTE | 2018-09-13 17:13 | NUR ---
PATIENT IS ALERT AND ORIENTED AND SITTING UP IN BED VISITING WITH FAMILY AT THE BEDSIDE. PATIENT HAS A TEMPERATURE OF 99.9 DEGREES FAHRENHEIT. PATIENT LUNG SOUNDS APPEAR CLEAR THROUGHOUT. PATIENT IS SATTING 90% OR GREATER ON 6 L NC. PATIENT IS SINUS TACH W HR IN THE 100S-110S. BP IS STABLE. OG TUBE AND TUBE FEEDING D/C'D DURING EXTUBATION. R UPPER EXTREMITY IS TIGHT AND SWOLLEN FROM INFILTRATED IV. WARM COMPRESS WAS APPLIED AND INSTRUCTED PATIENT TO ELEVATE ARM ON PILLOW. PATIENT HAS VANCO AND ZOSYN INFUSING. NO OTHER ACUTE CHANGES TO NOTE ON AT THIS TIME. WILL CONTINUE TO MONITOR. BED LOW. CALL LIGHT IN REACH.
--- NOTE | 2018-09-13 18:54 | NUR ---
SHIFT SUMMARY PATIENT IS ALERT AND ORIENTED. PATIENT IS SITTING UP IN BED VISITING WITH SIGNIFICANT OTHER. PATIENT HAS A TEMPERATURE OF 99.0 DEGREES FAHRENHEIT. PATIENT WAS EXTUBATED TODAY. PATIENT LUNGS SOUNDS ARE CLEAR THROUGHOUT. PATIENT WAS TITRATED FROM 6 L NC TO 8 L OXIMIZER AND IS SATTING 90% OR GREATER ON THIS. PATIENT IS SINUS TACH WITH HR IN THE LOW 100S. BP IS STABLE. PATIENT HAS MODERATE DISTENTION IN ABDOMEN BUT HAS NO COMPLAINTS OF TENDERNESS TO PALPATION. PATIENT HAS HYPOACTIVE BOWEL SOUNDS. JEN WAS D/C'D TODAY. PATIENT HAS TIGHT SKIN AND SOME SWELLING ON RIGHT ARM FROM INFILTRATED IV THAT WAS REMOVED. PATIENT HAS BEEN ELEVATING ARM WITH A WARM COMPRESS FOR THIS. NO OTHER ACUTE CHANGES IN SKIN TO NOTE AT THIS TIME. BED LOW. CALL LIGHT IN REACH. WILL CONTINUE TO MONITOR.
--- NOTE | 2018-09-13 19:15 | NUR ---
ASSUMED CARE OF PT PT ALERT, ORIENTED AND EXTREMELY ANXIOUS. PT ON 12L VIA OXYMIZER WITH O2 SATS IN THE LOW 90'S. VSS. PT REQUESTED TO STAND WITH ASSISTANCE TO USE URINAL. PT SHAKY AND SOB AND REPORTS BEING LIGHTHEADED. PT'S SO AT BEDSIDE. SEE FULL SHIFT ASSESSMENT.
[2018-09-14 03:55] LABS: BASOPHILS ABSOLUTE AUTO 0.03 K/mm3 (0.00-0.23); BASOPHILS PERCENT AUTO 0 % (0-2); EOSINOPHILS ABSOLUTE AUTO 0.43 K/mm3 (0.00-0.68); EOSINOPHILS PERCENT AUTO 3 % (0-6); Hematocrit 37.6 % (37.0-53.0); IMMATURE GRAN ABSOLUTE AUTO 0.36 K/mm3 (0.00-0.10); IMMATURE GRAN PERCENT AUTO 2 % (0-1); LYMPHOCYTES ABSOLUTE AUTO 1.21 K/mm3 (0.84-5.20); LYMPHOCYTES PERCENT AUTO 7 % (21-46); MONOCYTES ABSOLUTE AUTO 1.25 K/mm3 (0.16-1.47); MONOCYTES PERCENT AUTO 7 % (4-13); Mean Corpuscular HGB 28.2 pg (26.0-34.0); Mean Corpuscular HGB Conc 31.9 g/dL (31.5-36.5); Mean Corpuscular Volume 88 fL (80-100); NEUTROPHILS ABSOLUTE AUTO 14.23 K/mm3 (1.96-9.15); NEUTROPHILS PERCENT AUTO 81 % (41-73); Platelet Count 327 K/mm3 (150-400); RDW Coefficient Variation 14.6 % (11.7-14.2); RDW Standard Deviation 47.2 fL (35.1-46.3); Red Blood Cell Count 4.26 M/mm3 (4.30-5.90); White Blood Cell Count 17.51 K/mm3 (4.00-11.30)
[2018-09-14 04:15] LABS: Alanine Aminotransfer (ALT/SGP 44 U/L (12-78); Albumin, Blood 2.9 g/dL (3.4-5.0); Albumin/Globulin Ratio 0.9 (0.8-1.8); Alk Phos 35 U/L (50-136); Anion Gap 10 mmol/L (6-16); Aspartate Aminotrans (AST/SGOT 20 U/L (12-37); Bilirubin, Total 0.2 mg/dL (0.1-1.0); Blood Urea Nitrogen 19 mg/dL (8-24); Bun/Creatinine Ratio 26.9 (12.0-20.0); CO2, Blood 23 mmol/L (21-32); Calcium, Blood 8.1 mg/dL (8.5-10.1); Chloride, Blood 109 mmol/L (98-108); Creatinine, Blood 0.71 mg/dL (0.60-1.20); Globulin, Blood 3.2 g/dL (2.2-4.0); Glomerular Filtration Rate >60 (60-); Glucose, Blood 114 mg/dL (70-99); Magnesium, Blood 2.7 mg/dL (1.6-2.4); Sodium, Blood 142 mmol/L (136-145); Total Protein, Blood 6.1 g/dL (6.4-8.2)
--- NOTE | 2018-09-14 06:29 | NUR ---
SHIFT SUMMARY NO ACUTE CHANGES OVERNIGHT. PT DID NOT SLEEP HE FELT ANXIOUS AND WANTED TO GET OUT OF BED. ATTEMPTED TO AMBULATE PT BUT HE WAS DANGLING ON SIDE OF BED PATIENT REPORTED FEELING LIGHT HEADED, BECAME TACHYPNEIC AND HAD DROP IN 02 SATS TO MID 80'S. PT'S O2 INCREASED TO 12L VIA OXYMIZER. PT ENCOURAGED TO USE URINAL IN BED NEEDED. PT STATES THAT HE "WANTS TO GO HOME" AND "WANTS TO TAKE THE OXYMIZER OFF FOR A LITTLE WHILE". PT REMINDED THAT HE IS ON A SIGNIFICANT AMOUNT OF OXYGEN. PT'S SIGNIFICANT OTHER REMAINS AT BEDSIDE.
--- NOTE | 2018-09-14 08:31 | NUR ---
PT AWAKE,DROWSY THIS AM. TEARFUL, ANXIOUS, FEARFUL. STATES HE DOES NOT FEEL ANY BETTER. PT CLAMMY, PALE. TEMP 28.6. RESP 40'S. O2 INCREASED FROM 11L TO 15L OVER 30MIN. SATS 88-91%. DR CABRALES CALLED AT 0800. LASIX 40 IV GIVEN, BIPAP STARTED /6 WITH FIO2 AT 35%. CRACKLES TO BASES RIGHT WORSE THAN LEFT, FINE CRACKLES TO UPPER LOBES AUSCULT. TO BACK SIDE ONLY. AT BEDSIDE. DR CABRALES AT BEDSIDE TO ASSESS PT AT 0825.
--- NOTE | 2018-09-14 10:16 | NUR ---
PT'S TWO SON'S AND [id number] AT BEDSIDE. DR CABRALES AT BEDSIDE WELL; FAMILY UPDATED.
--- NOTE | 2018-09-14 10:16 | NUR ---
VERSED DC'D PER DR CABRALES. FENTANYL GTT MAY BE TITRATED UP NEEDED PER HER ORDERS.
[2018-09-14 11:06] LABS: ANTI-DSDNA ANTIBODIES <1 IU/mL (0-9); RNP ANTIBODIES <0.2 AI (0.0-0.9); SJOGREN'S ANTI-SS-A <0.2 AI (0.0-0.9); SJOGREN'S ANTI-SS-B <0.2 AI (0.0-0.9); SMITH ANTIBODIES <0.2 AI (0.0-0.9)
[2018-09-14 11:11] LABS: Base Excess Venous -0.1 mmol/L; Bicarbonate Venous 24.6 mmol/L (24.0-30.0); PCO2 Venous 35.8 mmHg (38-42); PO2 Venous 136 mmHg (38-42); pH Blood Venous 7.44 (7.34-7.37)
--- NOTE | 2018-09-14 13:08 | NUR ---
DR SANABRIA IN EARLIER TO SEE PT. DR CABRALES HAS ORDERED AFTERNOON LABS. BIPAP PLACED ON STANDBY FOR BREAK. O2 AT 10L VIA OXYMIZER PLACED. PT DOING MUCH BETTER THAN THIS AM. LUNGS IMPROVED. LESS CRACKLES APPRECIATED. VERY DIMINISHED TO RLL. CLEAR TO UPPER LOBES. FINE CRACKLES REMAIN IN LLL. PT COUGHING UP COPIOUS AMTS OF YELLOW TO CLEAR SPUTUM. ABLE TO TAKE SIPS OF WATER W/O DIFF;NO COUGHING AFTER.
[2018-09-14 16:00] LABS: BASOPHILS ABSOLUTE AUTO 0.09 K/mm3 (0.00-0.23); BASOPHILS PERCENT AUTO 0 % (0-2); EOSINOPHILS ABSOLUTE AUTO 1.37 K/mm3 (0.00-0.68); EOSINOPHILS PERCENT AUTO 6 % (0-6); Hematocrit 40.5 % (37.0-53.0); Hemoglobin 13.3 g/dL (13.5-17.5); IMMATURE GRAN ABSOLUTE AUTO 1.05 K/mm3 (0.00-0.10); IMMATURE GRAN PERCENT AUTO 5 % (0-1); LYMPHOCYTES ABSOLUTE AUTO 1.83 K/mm3 (0.84-5.20); LYMPHOCYTES PERCENT AUTO 9 % (21-46); MONOCYTES ABSOLUTE AUTO 1.67 K/mm3 (0.16-1.47); MONOCYTES PERCENT AUTO 8 % (4-13); Mean Corpuscular HGB 28.3 pg (26.0-34.0); Mean Corpuscular HGB Conc 32.8 g/dL (31.5-36.5); Mean Corpuscular Volume 86 fL (80-100); Mean Platelet Volume 10.8 fL (9.1-12.4); NEUTROPHILS ABSOLUTE AUTO 15.33 K/mm3 (1.96-9.15); NEUTROPHILS PERCENT AUTO 72 % (41-73); Platelet Count 417 K/mm3 (150-400); RDW Coefficient Variation 14.5 % (11.7-14.2); RDW Standard Deviation 45.7 fL (35.1-46.3); White Blood Cell Count 21.34 K/mm3 (4.00-11.30)
[2018-09-14 16:16] LABS: Anion Gap 9 mmol/L (6-16); Blood Urea Nitrogen 18 mg/dL (8-24); Bun/Creatinine Ratio 24.8 (12.0-20.0); CO2, Blood 24 mmol/L (21-32); Calcium, Blood 8.3 mg/dL (8.5-10.1); Chloride, Blood 107 mmol/L (98-108); Creatinine, Blood 0.73 mg/dL (0.60-1.20); Glomerular Filtration Rate >60 (60-); Glucose, Blood 98 mg/dL (70-99); Magnesium, Blood 2.7 mg/dL (1.6-2.4); Phosphorus, Blood 3.6 mg/dL (2.5-4.9); Potassium, Blood 4.1 mmol/L (3.5-5.5); Sodium, Blood 140 mmol/L (136-145)
--- NOTE | 2018-09-14 18:39 | NUR ---
PT SBA BACK TO BED. PT BP TRENDING UP FROM 1600 ON AND NOW IS HYPERTENSIVE. DR CABRALES NOTIFIED. PT PLACED DOWN TO 4L VIA OXYMIZER. NORVASC PO X1 ORDERED FOR HTN. PT CALM AND SLEEPING W HTN PRESSURES.
--- NOTE | 2018-09-14 21:15 | NUR ---
ASSUMED CARE OF PT PT ALERT AND ORIENTED WITH CONTINUED ANXIETY. PT REQUESTING SOMETHING TO HELP HIM SLEEP. PT ON 4L OXYMIZER WITH SATS IN THE LOW 90'S. PT CONTINUES TO HAVE THICK SECRETIONS THAT HE IS ABLE TO BRING UP. PT'S SO AT BEDSIDE. SEE FULL SHIFT SUMMARY.
--- NOTE | 2018-09-14 22:27 | NUR ---
PT BECAME HYPERTENSIVE AND TACHYPNEIC. RT PLACED PT ON BIPAP. PT TOLERATED FOR APPROX 5 MINUTES BEFORE HE BECAME ANXIOUS AND ASKED THAT IT BE REMOVED. CALL PLACED TO DR CABRALES REGARDING PT'S CONSISTENT ANXIETY. ORDER FOR ATIVAN RCV'D.
[2018-09-15 04:16] LABS: Hematocrit 37.8 % (37.0-53.0); Hemoglobin 12.3 g/dL (13.5-17.5); Mean Corpuscular HGB 28.3 pg (26.0-34.0); Mean Corpuscular HGB Conc 32.5 g/dL (31.5-36.5); Mean Corpuscular Volume 87 fL (80-100); Mean Platelet Volume 10.7 fL (9.1-12.4); Platelet Count 348 K/mm3 (150-400); RDW Coefficient Variation 14.4 % (11.7-14.2); RDW Standard Deviation 45.9 fL (35.1-46.3); Red Blood Cell Count 4.35 M/mm3 (4.30-5.90); White Blood Cell Count 16.72 K/mm3 (4.00-11.30)
[2018-09-15 04:16] LABS: Base Excess Venous -1.8 mmol/L; Bicarbonate Venous 23.3 mmol/L (24.0-30.0); PCO2 Venous 34.6 mmHg (38-42); PO2 Venous 135 mmHg (38-42); pH Blood Venous 7.42 (7.34-7.37)
[2018-09-15 04:38] LABS: Anion Gap 8 mmol/L (6-16); Blood Urea Nitrogen 15 mg/dL (8-24); CO2, Blood 23 mmol/L (21-32); Calcium, Blood 7.9 mg/dL (8.5-10.1); Chloride, Blood 106 mmol/L (98-108); Creatinine, Blood 0.65 mg/dL (0.60-1.20); Glomerular Filtration Rate >60 (60-); Glucose, Blood 114 mg/dL (70-99); Magnesium, Blood 2.6 mg/dL (1.6-2.4); Phosphorus, Blood 3.3 mg/dL (2.5-4.9); Potassium, Blood 4.3 mmol/L (3.5-5.5); Sodium, Blood 137 mmol/L (136-145)
[2018-09-15 05:30] LABS: BAND PERCENT MAN 1 % (0-8); BASOPHILS PERCENT MAN 0 % (0-2); EOSINOPHILS ABSOLUTE MAN 0.66 K/mm3 (0.00-0.68); EOSINOPHILS PERCENT MAN 4 % (0-6); LYMPHOCYTES ABSOLUTE MAN 1.33 K/mm3 (0.84-5.20); LYMPHOCYTES PERCENT MAN 8 % (21-46); METAMYELOCYTE ABSOLUTE MAN 0.16 K/mm3 (0.00-0.00); METAMYELOCYTE PERCENT MAN 1 % (0-0); MONOCYTES ABSOLUTE MAN 0.83 K/mm3 (0.16-1.47); MONOCYTES PERCENT MAN 5 % (4-13); MYELOCYTE ABSOLUTE MAN 0.16 K/mm3 (0.00-0.00); MYELOCYTE PERCENT MAN 1 % (0-0); NEUTROPHILS ABSOLUTE MAN 13.54 K/mm3 (1.96-9.15); SEG NEUTROPHILS PERCENT MAN 80 % (41-73); TOTAL CELLS COUNTED 120
--- NOTE | 2018-09-15 06:26 | NUR ---
SHIFT SUMMARY NO ACUTE CHANGES OVERNIGHT. VSS. SEE PREVIOUS SHIFT NOTES. WILL REPORT TO DAYSHIFT NURSE.
--- NOTE | 2018-09-15 09:58 | NUR ---
PT ASSESSED THIS AM AT 0745. PT SLEEPING. AWAKENS TO VOICE, DOZES OFF TO SLEEP EASILY. PT C/O BEING EXHAUSTED AND JUST WANTING TO SLEEP. PT ANXIOUS AND FEARFUL ABOUT BEING ILL AND HIS PROGRESS. PT C/O CHEST PAIN, MORE RIGHT SIDED, DESCRIBED AN ACHE, 3/10, PAIN IS INTERMITTENT, WORSE WITH A DEEP BREATH. XRAY SHOWS FLUID; DR CABRALES NOTIFIED; LASIX WAS ORDERED AND GIVEN. PT HAS FINE CRACKLES TO BASES. PT ON AIRVO AT 40% W SATS 90-91%. PLAN: CASSIDY, OOB TO CHAIR, ABULATE IF TOLERATED, I.S./FLUTTER Q HR, OBTAIN SPUTUM ORDERED.
--- NOTE | 2018-09-15 17:31 | NUR ---
69cc cleared from versed pump. versed remains at 3cc/hr, fent 25mcg/hr, epi 2mcg/min.
--- NOTE | 2018-09-15 18:01 | NUR ---
PT AMBULATED IN ICU UNIT FROM EAST SIDE TO WEST SIDE;SBA WITH WALKER, O2 AT 6L VIA OXYMIZER. PT TOLERATED VERY WELL WITH SPO2 INCREASING TO 96%. PT IN CHAIR AFTER WALK FOR DINNER. I.S. GIVEN TO PT THIS AM WITH INSTRUCTIONS. PT HAS BEEN USING I.S. AND FLUTTER VALVE Q 1HR WHILE AWAKE. PT MADE A PB&J SANDWICH; ATE 100% OF SANDWICH AND 3 SERVINGS OF FRUIT. PT SITTING IN CHAIR NOW W OXYMIZER AND 6L. SPO2 93%.
--- NOTE | 2018-09-15 22:03 | NUR ---
ASSUMED CARE OF PT PT ALERT AND ORIENTED SITTING UP IN RECLINER. PT ON 6L VIA OXYMIZER. LUNGS CLEAR BILATERALLY, PT ABLE TO BRING UP MODERATE AMOUNTS OF SECRETIONS AND USES THE YANKUER NEEDED. PT CONTINUES TO EXPERIENCE ANXIETY. PT'S SO AT BEDSIDE. SEE FULL SHIFT ASSESSMENT.
[2018-09-16 04:47] LABS: Hematocrit 41.4 % (37.0-53.0); Hemoglobin 13.7 g/dL (13.5-17.5); Mean Corpuscular HGB 28.6 pg (26.0-34.0); Mean Corpuscular HGB Conc 33.1 g/dL (31.5-36.5); Mean Corpuscular Volume 86 fL (80-100); Mean Platelet Volume 10.7 fL (9.1-12.4); Platelet Count 442 K/mm3 (150-400); RDW Coefficient Variation 13.9 % (11.7-14.2); RDW Standard Deviation 44.4 fL (35.1-46.3); Red Blood Cell Count 4.79 M/mm3 (4.30-5.90); White Blood Cell Count 23.44 K/mm3 (4.00-11.30)
[2018-09-16 05:09] LABS: Anion Gap 8 mmol/L (6-16); Blood Urea Nitrogen 14 mg/dL (8-24); Bun/Creatinine Ratio 20.8 (12.0-20.0); CO2, Blood 23 mmol/L (21-32); Calcium, Blood 8.2 mg/dL (8.5-10.1); Chloride, Blood 104 mmol/L (98-108); Creatinine, Blood 0.67 mg/dL (0.60-1.20); Glomerular Filtration Rate >60 (60-); Glucose, Blood 120 mg/dL (70-99); Magnesium, Blood 2.5 mg/dL (1.6-2.4); Phosphorus, Blood 3.4 mg/dL (2.5-4.9); Potassium, Blood 4.4 mmol/L (3.5-5.5); Sodium, Blood 135 mmol/L (136-145)
[2018-09-16 05:28] LABS: BAND PERCENT MAN 5 % (0-8); BASOPHILS PERCENT MAN 0 % (0-2); EOSINOPHILS PERCENT MAN 3 % (0-6); LYMPHOCYTES ABSOLUTE MAN 1.17 K/mm3 (0.84-5.20); LYMPHOCYTES PERCENT MAN 5 % (21-46); METAMYELOCYTE ABSOLUTE MAN 0.46 K/mm3 (0.00-0.00); METAMYELOCYTE PERCENT MAN 2 % (0-0); MONOCYTES PERCENT MAN 3 % (4-13); NEUTROPHILS ABSOLUTE MAN 20.39 K/mm3 (1.96-9.15); SEG NEUTROPHILS PERCENT MAN 82 % (41-73); TOTAL CELLS COUNTED 100
--- NOTE | 2018-09-16 06:19 | NUR ---
SHIFT SUMMARY NO ACUTE CHANGES OVERNIGHT. PT ABLE TO SLEEP WELL ON AIRVO WITH ONLY ONE COMPLAINT OF RIGHT SIDED CHEST PAIN WITH INSPIRATION. 1750 ML URINARY OUTPUT. VSS. WILL REPORT TO DAYSHIFT NURSE.
--- NOTE | 2018-09-16 08:42 | NUR ---
AM NOTE PT AWAKE AND ALERT. SR. VSS. NEEDS ENCOURAGEMENT TO DO FOR HIMSELF. GIRLFRIEND AT BEDSIDE. TALKED ABOUT GETTING OOB TO RECLINER TODAY. PT USING I/S AND FLUTTER. NO COUGH THIS AM. DENIED PAIN WITH DEEP BREATHING. AIRVO 40%. SAT STABLE. ENCOURAGED TO EAT. PT ONLY WANTS TO DRINK COFFEE. CONTINUE POT.
--- NOTE | 2018-09-16 11:50 | NUR ---
AM NOTE PT AMBULATED TWO LAPS AROUND THE EAST SIDE. SAT 91% ON 6L OXIMYZER AND HR 111 BPM. MILD SOB. WEAKENED QUICKLY. RETUNRED TO ROOM. SAT UP AT BEDSIDE IN THE RECLINER. EATING LUNCH CURRENTLY. DENIED PAIN OR CHEST DISCOMFORT. USING FLUTTER AND I/S FREQUENTLY. POOR APPETITE. ENJOYING COFFEE. VSS. CONTINUE POT.
--- NOTE | 2018-09-16 16:40 | NUR ---
EVENING NOTE PT AWAKE, UP IN THE RECLINER ALL DAY. TOOK PT OUTSIDE BY W/C. HE WAS REALLY FEELING CLOSED IN AND WANTED SOME SUN. TOLERATED WELL. PUSHED HIM. PT HAS BEEN ON THE OXIMYZER AT 6L ALL DAY. SAT 91-94%. HE REALLY WANTS TO GO HOME. MANAGEING HIS EXPECTATIONS IS THE MOST CHALLENGING FOR HIM. NO CHEST PAIN TODAY. POOR APPETITE. CONTINUE POT.
--- NOTE | 2018-09-17 01:11 | NUR ---
CARE ASSUMED REPORT RECEIVED, CARE ASSUMED AT 1900. AT SHIFT CHANGE PT SITTING UP IN RECLINER WATCHING TELEVISION WITH SIGNFICANT OTHER AT BEDSIDE. VITALS STABLE, SEE SHIFT ASSESSMENT. STAND BY ASSIST TO AMBULATE IN HALLWAY PRIOR TO GOING TO BED. PT TOLERATED WITH NO DESATURATIONS. PT DID REPORT FEELING WEAK DURING EXERTION. INITIALLY USED WALKER BUT REQUESTED TO WALK WITHOUT IT AFTER A FEW MINUTES AND WALKED THE REMAINDER WITHOUT IT. ASSESSMENTS UNCHANGED. TITRATING OXYGEN TOLERATED. PT HAS BEEN UP IN ROOM TO USE BATHROOM. CALLING APPROPRIATELY FOR NEEDS.
[2018-09-17 04:19] LABS: Hematocrit 41.1 % (37.0-53.0); Hemoglobin 13.2 g/dL (13.5-17.5); Mean Corpuscular HGB 28.1 pg (26.0-34.0); Mean Corpuscular HGB Conc 32.1 g/dL (31.5-36.5); Mean Corpuscular Volume 88 fL (80-100); Mean Platelet Volume 10.6 fL (9.1-12.4); Platelet Count 444 K/mm3 (150-400); RDW Standard Deviation 44.5 fL (35.1-46.3); Red Blood Cell Count 4.69 M/mm3 (4.30-5.90); White Blood Cell Count 23.07 K/mm3 (4.00-11.30)
[2018-09-17 04:37] LABS: Albumin, Blood 3.2 g/dL (3.4-5.0); Anion Gap 8 mmol/L (6-16); Blood Urea Nitrogen 12 mg/dL (8-24); Bun/Creatinine Ratio 18.2 (12.0-20.0); CO2, Blood 23 mmol/L (21-32); Calcium, Blood 8.1 mg/dL (8.5-10.1); Chloride, Blood 106 mmol/L (98-108); Creatinine, Blood 0.66 mg/dL (0.60-1.20); Glomerular Filtration Rate >60 (60-); Glucose, Blood 143 mg/dL (70-99); Phosphorus, Blood 3.2 mg/dL (2.5-4.9); Potassium, Blood 4.6 mmol/L (3.5-5.5); Sodium, Blood 137 mmol/L (136-145)
[2018-09-17 04:39] LABS: BAND PERCENT MAN 2 % (0-8); BASOPHILS PERCENT MAN 0 % (0-2); EOSINOPHILS ABSOLUTE MAN 0.46 K/mm3 (0.00-0.68); EOSINOPHILS PERCENT MAN 2 % (0-6); LYMPHOCYTES ABSOLUTE MAN 1.61 K/mm3 (0.84-5.20); LYMPHOCYTES PERCENT MAN 7 % (21-46); METAMYELOCYTE ABSOLUTE MAN 0.23 K/mm3 (0.00-0.00); METAMYELOCYTE PERCENT MAN 1 % (0-0); MONOCYTES ABSOLUTE MAN 1.61 K/mm3 (0.16-1.47); MONOCYTES PERCENT MAN 7 % (4-13); MYELOCYTE ABSOLUTE MAN 0.23 K/mm3 (0.00-0.00); MYELOCYTE PERCENT MAN 1 % (0-0); NEUTROPHILS ABSOLUTE MAN 18.68 K/mm3 (1.96-9.15); PROMYELOCYTE ABSOLUTE MAN 0.23 K/mm3 (0.00-0.00); PROMYELOCYTE PERCENT MAN 1 % (0-0); SEG NEUTROPHILS PERCENT MAN 79 % (41-73); TOTAL CELLS COUNTED 100
--- NOTE | 2018-09-17 06:03 | NUR ---
SUMMARY NO ACUTE CHANGES THROUGHOUT SHIFT. VITALS STABLE. 02 MAINTAINED ON 4 LPM NASAL CANNULA AT REST AND WITH ACTIVITY. SIGNIFICANT OTHER AT BEDSIDE THROUGHOUT NIGHT. PT HAS CALLED APPROPRIATELY FOR NEEDS.
--- NOTE | 2018-09-17 07:21 | NUR ---
REPORT TO MORA HUNTER TO ASSUME CARE
--- NOTE | 2018-09-17 07:25 | NUR ---
AM ASSESSMENT: Pt up to chair with one person standby assist. VSS. LS slightly diminished throughout. BIox 94% on 4l nc. HR reg. BT positive. PUlses palp. Pt denies pain at this time. States that he is feeling pretty good and hopes to transfer to a different unit for a little more privacy and so he can walk around and shower. Sig other at bedside. IVF running per orders. Call light in reach. WIll continue to monitor.
--- NOTE | 2018-09-17 17:50 | NUR ---
PT ARRIVED TO MEDICAL FLOOR FROM ICU VIA W/C. REPORT WAS RECIEVED PRIOR TO TRANSFER. PT REQUESTING A SHOWER, PT SET UP FOR A SHOWER. SIGNIFICANT OTHER IN ROOM WITH PT.
--- NOTE | 2018-09-17 18:12 | NUR ---
SHIFT SUMMARY: Pt has done well this shift. Was able to be titrated off of oxygen this am. BIox has remained >90% this shift. HR has remained NSR in the 80-100 range. BP has been stable. Pt has denied pain, except when he had a JULIEN that was taken care of by Tylenol. LS have been clear. BT have been positive and PT has been up independently in room and to [facility]. Report was called to Wilfredo Gardner RN. Pt was transfered via w/c to room [facility] at end of shift. Stable at time of transfer and end of shift.
--- NOTE | 2018-09-18 05:13 | NUR ---
NOC SHIFT SUMMARY PT HAS BEEN PLEASANT AND COOPERATIVE WITH CARE THIS NIGHT. HAS SLEPT THROUGHT MOST OF NIGHT. GIRLFRIEND IS IN ROOM WITH HIM. HAS HAD NO COMPLAINTS OR VOICED ANY NEEDS. VSS. APPEARS IN NO ACUTE DISTRESS. WILL CONTINUE TO MONITOR.
[2018-09-18 06:08] LABS: Albumin, Blood 3.2 g/dL (3.4-5.0); Anion Gap 7 mmol/L (6-16); Blood Urea Nitrogen 10 mg/dL (8-24); Bun/Creatinine Ratio 15.7 (12.0-20.0); CO2, Blood 24 mmol/L (21-32); Calcium, Blood 8.3 mg/dL (8.5-10.1); Chloride, Blood 108 mmol/L (98-108); Creatinine, Blood 0.64 mg/dL (0.60-1.20); Glomerular Filtration Rate >60 (60-); Glucose, Blood 87 mg/dL (70-99); Phosphorus, Blood 2.8 mg/dL (2.5-4.9); Potassium, Blood 3.8 mmol/L (3.5-5.5); Sodium, Blood 139 mmol/L (136-145)
[2018-09-18] MEDS ORDERED: ACET325 PO (12:39)
[2018-09-18] MEDS ORDERED: ALBU90OI INH (12:39)
[2018-09-18] MEDS ORDERED: BENZ100A PO (12:40)
[2018-09-18] MEDS ORDERED: TUMS500 MG PO (12:41)
[2018-09-18] MEDS ORDERED: ONDA4ODT MM (12:41)
[2018-09-18] MEDS ORDERED: MELATONIN5 M1 PO (12:41)
[2018-09-18] MEDS ORDERED: PRED20 (12:42)
--- NOTE | 2018-09-18 14:14 | NUR ---
SUMMARY/DISCHARGE PT DISCHARGED TO HOME, PT VERBALIZED UNDERSTANDING OF DISCHARGE INSTRUCTIONS, PT DOES NOT HAVE A PCP, INFORMATION ABOUT CLINICS IN [facility] THAT TAKE PT'S WITH NO INSURANCE GIVEN TO THE PT, PT REPORTS HE WILL BE MAKING HIMSELF AN APPOINTMENT AT [facility] IN [place], PT DECLINED A WHEELCHAIR AND WAS ABLE TO WALK SAFELY TO THE ELEVATOR
[2018-09-19 08:56] LABS: Result SEE LABOUT RESULTS
== END 2018-09-18 14:23 | disposition home or self-care (01) | DRG 871 ==
LOC: ER 08:24 → ICUE 11:05 → MEDS 11:05 → ICUE 09-11 07:18 → MEDS 09-17 17:39 → ENPENDDIS 09-18 12:05 → MEDS 09-18 14:23
PROVIDERS: Hospitalist; Internal Medicine Critical Care Medicine; Internal Medicine Pulmonary Disease; Physician Assistant; ADMIT Internal Medicine
PROC: 0B9F8ZX Drainage of Right Lower Lung Lobe, Via Natural or Artificial Opening Endoscopic, Diagnostic (ICD-10-PCS; 2018-09-12)
PROC: 0BH17EZ Insertion of Endotracheal Airway into Trachea, Via Natural or Artificial Opening (ICD-10-PCS; 2018-09-12)
PROC: 5A1945Z Respiratory Ventilation, 24-96 Consecutive Hours (ICD-10-PCS; 2018-09-12)
PROC: 5A09357 Assistance with Respiratory Ventilation, Less than 24 Consecutive Hours, Continuous Positive Airway Pressure (ICD-10-PCS; 2018-09-12)
PROC: 0B9J8ZX Drainage of Left Lower Lung Lobe, Via Natural or Artificial Opening Endoscopic, Diagnostic (ICD-10-PCS; principal; 2018-09-12 10:30)
DX: A41.9 Sepsis, unspecified organism (principal); J96.01 Acute respiratory failure with hypoxia; J18.9 Pneumonia, unspecified organism; F41.9 Anxiety disorder, unspecified
CPT/HCPCS: 31500; 31720; 36415; 36600; 51702; 71045; 71046; 80048; 80053; 80069; 80202; 81001; 82330; 82803; 82947; 83605; 83735; 84100; 84484; 85007; 85025; 85027; 86160; 86225; 86235; 87040; 87070; 87205; 87389; 87804; 88108; 88312; 93005; 93010; 93306; 94002; 94003; 94640; 94660; 94667; 94668; 94760; 94761; 96365; 96367; 99285-25; C1751; C9113; J0456; J0696; J1170; J1650; J1885; J1940; J2060; J2250; J2405; J2543; J2704; J2920; J2930; J3010; J3370; J7030; J7040; J7050; J7060; J7120; J7512

== ENCOUNTER 2019-12-09 18:21 | Emergency (ER) | payer OTHER ==
[~2019-12-09] VITALS: Ht 172.7 cm; Wt 70.3 kg
[~2019-12-09 18:21] MED LIST changes: +ACET325 PO; +ALBU90OI INH; +BENZ100A PO; +MELATONIN5 M1 PO; +ONDA4ODT MM; +PRED20; +TUMS500 MG PO
[2019-12-09] MEDS ORDERED: BENZ100A PO (22:26)
[2019-12-09] MEDS ORDERED: Zithromax250 MG PO (22:26)
== END 2019-12-09 23:09 | disposition home or self-care (01) ==
LOC: ER 18:21
DX: R05 Cough (principal); R07.9 Chest pain, unspecified; Z87.891 Personal history of nicotine dependence; Z11.59 Encounter for screening for other viral diseases
CPT/HCPCS: 36415; 71046; 93005; 93010; 99284-25; U0003

== ENCOUNTER 2020-05-02 17:11 | Emergency (ER) | payer OTHER ==
[~2020-05-02] VITALS: Ht 175.3 cm; Wt 77.1 kg
[~2020-05-02 17:11] MED LIST changes: +Zithromax250 MG PO
[2020-05-02] MEDS ORDERED: ERYT1OIN RIGHTEYE (18:31)
== END 2020-05-02 18:46 | disposition home or self-care (01) ==
LOC: ER 17:11
DX: S05.01XA Injury of conjunctiva and corneal abrasion without foreign body, right eye, initial encounter (principal); J40 Bronchitis, not specified as acute or chronic; Z87.891 Personal history of nicotine dependence; W22.8XXA Striking against or struck by other objects, initial encounter; Y92.89 Other specified places as the place of occurrence of the external cause; Y99.0 Civilian activity done for income or pay
CPT/HCPCS: 99282-25

== ENCOUNTER 2023-01-25 23:23 | Emergency (ER) | payer OTHER ==
[~2023-01-25] VITALS: Ht 175.3 cm; Wt 59.0 kg
[~2023-01-25 23:23] MED LIST changes: +ERYT1OIN RIGHTEYE
[2023-01-25 23:39] VITALS: BP 155/95
[2023-01-26 00:07] LABS: BASOPHILS ABSOLUTE AUTO 0.06 K/mm3 (0.00-0.23); BASOPHILS PERCENT AUTO 1 % (0-2); EOSINOPHILS ABSOLUTE AUTO 0.13 K/mm3 (0.00-0.68); EOSINOPHILS PERCENT AUTO 1 % (0-6); Hematocrit 49.8 % (37.0-53.0); IMMATURE GRAN ABSOLUTE AUTO 0.04 K/mm3 (0.00-0.10); IMMATURE GRAN PERCENT AUTO 0 % (0-1); LYMPHOCYTES ABSOLUTE AUTO 1.37 K/mm3 (0.84-5.20); LYMPHOCYTES PERCENT AUTO 12 % (21-46); MONOCYTES ABSOLUTE AUTO 0.72 K/mm3 (0.16-1.47); MONOCYTES PERCENT AUTO 6 % (4-13); Mean Corpuscular HGB Conc 34.1 g/dL (31.5-36.5); Mean Corpuscular Volume 85 fL (80-100); Mean Platelet Volume 10.8 fL (9.1-12.4); NEUTROPHILS ABSOLUTE AUTO 8.85 K/mm3 (1.96-9.15); NEUTROPHILS PERCENT AUTO 79 % (41-73); Platelet Count 325 K/mm3 (150-400); RDW Coefficient Variation 13.2 % (11.7-14.2); RDW Standard Deviation 41.6 fL (35.1-46.3); Red Blood Cell Count 5.86 M/mm3 (4.30-5.90); White Blood Cell Count 11.17 K/mm3 (4.00-11.30)
[2023-01-26 00:25] LABS: Albumin, Blood 4.5 g/dL (3.4-5.0); Albumin/Globulin Ratio 1.3 (0.8-1.8); Bilirubin, Total 0.7 mg/dL (0.1-1.0); Bun/Creatinine Ratio 13.9 (12.0-20.0); Calcium, Blood 9.4 mg/dL (8.5-10.1); Creatinine, Blood 0.79 mg/dL (0.60-1.20); Globulin, Blood 3.4 g/dL (2.2-4.0); Potassium, Blood 3.4 mmol/L (3.5-5.5); Total Protein, Blood 7.9 g/dL (6.4-8.2)
[2023-01-26] MEDS ORDERED: FAMO20 PO (02:02)
[2023-01-27] MEDS ORDERED: ACET325 PO (14:31)
[2023-01-27] MEDS ORDERED: OXYC5 PO (14:32)
[2023-01-27] MEDS ORDERED: IBUP600 PO (14:32)
== END 2023-01-26 02:23 | disposition home or self-care (01) ==
LOC: ER 23:23
PROVIDERS: Physician Assistant
DX: R10.13 Epigastric pain (principal); Z79.899 Other long term (current) drug therapy; Z87.891 Personal history of nicotine dependence
CPT/HCPCS: 80053; 83690; 85025; 93005; 93010; 99285-25; A9270

== ENCOUNTER 2023-01-26 11:28 | Observation (INO) | payer OTHER ==
[~2023-01-26] VITALS: Ht 175.3 cm; Wt 66.7 kg
[~2023-01-26 11:28] MED LIST changes: -IBUP600 PO; -OXYC5 PO
[2023-01-26 13:59] VITALS: BP 114/78
--- NOTE | 2023-01-26 16:03 | NUR ---
ADMISSION: REPORT RECEIVED FROM ED RN. PT TO UNIT AT 1350. A/O, VSS. ABLE TO ANSWER ADMISSION QUESTIONS. DENIES IGNITION SOURCES, EDUCATED ON DANGER OF 02 USE AND SMOKING. 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 AMBULATORY IN ROOM.
--- NOTE | 2023-01-26 16:05 | NUR ---
DR. HENRDIX IN ROOM AT ABOUT 1500, PT ABLE TO EAT A LITTLE CLEARS AND CRACKERS NOW IF TOLERATES. NPO AT [facility] FOR SURGERY TOMORROW.
[2023-01-26 20:48] VITALS: BP 106/75
[2023-01-27] VITALS (14 sets, daily range): BP systolic 120–140; BP diastolic 74–94
[2023-01-27 05:03] LABS: Hematocrit 42.8 % (37.0-53.0); Hemoglobin 14.5 g/dL (13.5-17.5); Mean Corpuscular HGB 29.4 pg (26.0-34.0); Mean Corpuscular HGB Conc 33.9 g/dL (31.5-36.5); Mean Corpuscular Volume 87 fL (80-100); Mean Platelet Volume 10.7 fL (9.1-12.4); Platelet Count 252 K/mm3 (150-400); RDW Coefficient Variation 13.6 % (11.7-14.2); RDW Standard Deviation 42.8 fL (35.1-46.3); Red Blood Cell Count 4.93 M/mm3 (4.30-5.90); White Blood Cell Count 12.31 K/mm3 (4.00-11.30)
[2023-01-27 05:46] LABS: Albumin, Blood 3.3 g/dL (3.4-5.0); Albumin/Globulin Ratio 1.3 (0.8-1.8); Bilirubin, Total 0.5 mg/dL (0.1-1.0); Bun/Creatinine Ratio 11.6 (12.0-20.0); Calcium, Blood 8.3 mg/dL (8.5-10.1); Creatinine, Blood 0.6 mg/dL (0.60-1.20); Globulin, Blood 2.6 g/dL (2.2-4.0); Potassium, Blood 3.9 mmol/L (3.5-5.5)
[2023-01-27 05:53] LABS: Total Protein, Blood 5.9 g/dL (6.4-8.2)
--- NOTE | 2023-01-27 06:03 | NUR ---
SHIFT SUMMARY NOC. PT WITH ACUTE CHOLECYSTITIS. PT IS INDEPENDENT IN THE ROOM AND VOIDING. EPIGASTRIC PAIN WAS ABSENT BUT INCREASED TO A 4. PT DECLINED MEDICATION FOR PAIN STATING IT WAS OK IF HE DID NOT MOVE. PT HAD DIFFICULTY SLEEPING AND REQUESTED PRN MELATONIN. NEW ORDER RECEIVED FROM DR. HENDRIX. MELATONIN WAS EFFECTIVE FOR SLEEP. PT HAS BEEN NPO SINCE 15 AFTER TAKING MELATONIN.
--- NOTE | 2023-01-27 10:38 | NUR ---
POST OP ARRIVAL ALERT, ORIENTED, PLEASANT. ABLE TO STAND & TRANSFER w/ SBA TO HOSPITAL BED. ABD SOFT w/ LAP SITES x 4 COVERED w/ WOUND GLUE. DENIES N/V. REPORTS TOLERABLE PAIN. SIPS OF WATER GIVEN.
[2023-01-27] MEDS ORDERED: ACET325 PO (14:31)
[2023-01-27] MEDS ORDERED: IBUP600 PO (14:32)
[2023-01-27] MEDS ORDERED: OXYC5 PO (14:32)
--- NOTE | 2023-01-27 15:39 | NUR ---
DISCHARGE EATING, DRINKING, VOIDING. AMBULATING EASILY. PAIN REASONABLY CONTROLLED. FEELS READY FOR DC. ESCORTED OUT VIA WC.
== END 2023-01-27 15:42 | disposition home or self-care (01) ==
LOC: ER 11:28 → SURS 11:29
PROVIDERS: ADMIT Surgery
DX: K81.0 Acute cholecystitis (principal); F17.290 Nicotine dependence, other tobacco product, uncomplicated; R10.11 Right upper quadrant pain; R10.13 Epigastric pain
CPT/HCPCS: 36415; 76705; 80053; 83690; 84484; 85025; 85027; 88304; 96361; 96365; 96367; 96375; 96376; 99284-25; A9270; G0378; J0295; J1100; J1170; J1885; J2405; J2543; J2704; J3010; J7030; J7120

== ENCOUNTER → 2023-01-26 | Outpatient (CLI) | payer OTHER ==
[~2023-01-26] MED LIST changes: +FAMO20 PO; +IBUP600 PO; +OXYC5 PO
[2023-01-26 09:09] LABS: BASOPHILS ABSOLUTE AUTO 0.07 K/mm3 (0.00-0.23); BASOPHILS PERCENT AUTO 0 % (0-2); EOSINOPHILS ABSOLUTE AUTO 0.04 K/mm3 (0.00-0.68); EOSINOPHILS PERCENT AUTO 0 % (0-6); Hematocrit 48.2 % (37.0-53.0); Hemoglobin 16.8 g/dL (13.5-17.5); IMMATURE GRAN ABSOLUTE AUTO 0.06 K/mm3 (0.00-0.10); IMMATURE GRAN PERCENT AUTO 0 % (0-1); LYMPHOCYTES ABSOLUTE AUTO 1.27 K/mm3 (0.84-5.20); LYMPHOCYTES PERCENT AUTO 7 % (21-46); MONOCYTES ABSOLUTE AUTO 1.24 K/mm3 (0.16-1.47); MONOCYTES PERCENT AUTO 7 % (4-13); Mean Corpuscular HGB 29.7 pg (26.0-34.0); Mean Corpuscular HGB Conc 34.9 g/dL (31.5-36.5); Mean Corpuscular Volume 85 fL (80-100); Mean Platelet Volume 10.9 fL (9.1-12.4); NEUTROPHILS ABSOLUTE AUTO 14.42 K/mm3 (1.96-9.15); NEUTROPHILS PERCENT AUTO 84 % (41-73); Platelet Count 331 K/mm3 (150-400); RDW Coefficient Variation 13.4 % (11.7-14.2); RDW Standard Deviation 41.8 fL (35.1-46.3); Red Blood Cell Count 5.66 M/mm3 (4.30-5.90)
[2023-01-26 09:20] LABS: Albumin, Blood 4.3 g/dL (3.4-5.0); Albumin/Globulin Ratio 1.3 (0.8-1.8); Bilirubin, Total 0.7 mg/dL (0.1-1.0); Bun/Creatinine Ratio 14.5 (12.0-20.0); Calcium, Blood 9.3 mg/dL (8.5-10.1); Creatinine, Blood 0.76 mg/dL (0.60-1.20); Globulin, Blood 3.4 g/dL (2.2-4.0); Potassium, Blood 3.8 mmol/L (3.5-5.5); Total Protein, Blood 7.7 g/dL (6.4-8.2)
== END | disposition home or self-care (01) ==
LOC: LAB SHORT 09:04 → LAB 09:04
PROVIDERS: Physician Assistant
DX: R10.13 Epigastric pain (principal)
CPT/HCPCS: 80053; 83690; 84484; 85025